=== PATIENT | male | born 2005 | race Caucasian/White ===

== ENCOUNTER 2025-02-09 21:09 | Emergency (ER) | payer BC ==
[2025-02-09 21:29] VITALS: TEMP 98.8
--- NOTE | 2025-02-09 22:00 | ED ---
General Adult HPI - General Chief complaint: GI Bleed Stated complaint: Abd Pain Time Seen by Provider: 02/09/25 21:37 Source: patient Mode of arrival: ambulatory - History of Present Illness Initial comments: Dictation was produced using [employer] dictation software. please excuse any grammatical, word or spelling errors. Chief Complaint: 19-year-old male presents with concerns of upper GI bleed History of Present Illness: Patient is 19-year-old male states he feels anxious because he thinks he is having upper GI bleed. States that he has some cramping to his lower abdomen. He is brushing his teeth after drinking cranberry juice when he vomited some red emesis. Patient denies any medical history. States that he is currently on antibiotics for sinus infection The ROS documented in this emergency department record has been reviewed and confirmed by me. Those systems with pertinent positive or negative responses have been documented in the HPI. All other systems are other negative and/or noncontributory. - Related Data Allergies Allergy/AdvReac Type Severity Reaction Status Date / Time No Known Allergies Allergy Verified 02/09/25 21:29 Review of Systems ROS Statement: Those systems with pertinent positive or pertinent negative responses have been documented in the HPI. ROS Other: All systems not noted in ROS Statement are negative. Past Medical History Past Medical History: No Reported History History of Any Multi-Drug Resistant Organisms: None Reported Past Surgical History: No Surgical Hx Reported Past Psychological History: No Psychological Hx Reported Smoking Status: Vaper Past Alcohol Use History: None Reported, Rare Past Drug Use History: None Reported General Exam - General Exam Comments Initial Comments: PHYSICAL EXAM: General Impression: Alert and oriented x3, not in acute distress HEENT: Normocephalic atraumatic, extra-ocular movements intact, pupils equal and reactive to light bilaterally, mucous membranes moist. Cardiovascular: Heart regular rate and rhythm Chest: Able to complete full sentences, no retractions, no tachypnea Abdomen: abdomen soft, non-tender, non-distended, no organomegaly Musculoskeletal: Pulses present and equal in all extremities, no peripheral edema Motor: no focal deficits noted Neurological: CN II-XII grossly intact, no focal motor or sensory deficits noted Skin: Intact with no visualized rashes Psych: Normal affect and mood Course Vital Signs 02/09/25 02/09/25 21:22 23:12 Temperature 98.8 F Pulse Rate 79 67 Respiratory 18 17 Rate Blood Pressure 153/80 131/75 O2 Sat by Pulse 97 99 Oximetry Medical Decision Making - Medical Decision Making Was pt. sent in by a medical professional or institution (, PA, AIR CONDITIONING EQUIPMENT MECHANIC, urgent care, hospital, or penitentiary...) When possible be specific @ -[No] Did you speak to anyone other than the patient for history (EMS, parent, family, police, friend...)? What history was obtained from this source @ -[No] Did you review nursing and triage notes (agree or disagree)? Why? @ -[I reviewed and agree with nursing and triage notes] Were old charts reviewed (outside hosp., previous admission, EMS record, old EKG, old radiological studies, urgent care reports/EKG's, penitentiary records)? Report findings @ -[No old charts were reviewed] Differential Diagnosis (chest pain, altered mental status, abdominal pain women, abdominal pain men, vaginal bleeding, musculoskeletal, weakness, fever, dyspnea, syncope, headache, dizziness, GI bleed, back pain, seizure, CVA, palpatations, mental health)? @ -Differential GI Bleed: Esophageal varices, aortoenteric fistula, Vidhi-Cedeno, gastritis, peptic ulcer disease, diverticulosis, inflammatory bowel disease, hemorrhoids, fissure, colitis, malignancy, Meckel's diverticulum, this is not meant to be an all- inclusive list. EKG interpreted by me (3pts min.). @ -[None done] X-rays interpreted by me (1pt min.). @ -[None done] CT interpreted by me (1pt min.). @ -[None done] U/S interpreted by me (1pt. min.). @ -[None done] What testing was considered but not performed or refused? (CT, X-rays, U/S, labs)? Why? @ -[None] What meds were considered but not given or refused? Why? @ -[None] Was smoking cessation discussed for >3mins.? @ -[No] Were there social determinants of health that impacted care today? How? (Homelessness, low income, unemployed, alcoholism, drug addiction, tra nsportation, low edu. Level, literacy, decrease access to med. care, custodial, rehab)? @ -[No] Was there de-escalation of care discussed even if they declined (Discuss DNR or withdrawal of care, Hospice)? DNR status @ -[No] What co-morbidities impacted this encounter? (DM, HTN, Smoking, COPD, CAD, Can cer, CVA, ARF, Chemo, Hep., AIDS, mental health diagnosis, sleep apnea, morbid obesity)? @ -[None] Was patient admitted / discharged? Hospital course, mention meds given and route, prescriptions, significant lab abnormalities, going to OR and other pertinent info. @ -19-year-old male with symptoms concerning for upper GI bleed. Vital signs stable. Labs unremarkable. Patient has no high risk features. Patient discharged given referral to GI doctor. Return precautions discussed. Did you discuss the management of the patient with other professionals (professionals i.e. , PA, AIR CONDITIONING EQUIPMENT MECHANIC, lab, RT, psych nurse, social media content specialist, database coordinator, teacher, financial administration officer, behavioral health case manager)? Give summary @ -[No] Was critical care preformed (if so, how long)? @ -[No] Undiagnosed new problem with uncertain prognosis? @ -[No] Drug Therapy requiring intensive monitoring for toxicity (Heparin, Nitro, Insulin, Cardizem)? @ -[No] Were any procedures done? @ -[No] Diagnosis/symptom? Acute, or Chronic, or Acute on Chronic? Uncomplicated (without systemic symptoms) or Complicated (systemic symptoms)? @ -Emesis Side effects of treatment? @ -[No] Exacerbation, Progression, or Severe Exacerbation? @ -[No] Poses a threat to life or bodily function? How? (Chest pain, [place], [place], pneumonia, PE, COPD, DKA, ARF, appy, cholecystitis, CVA, Diverticulitis, Homicidal, Suicidal, threat to staff... and all critical care pts) @ -[No] - Lab Data Result diagrams: 02/09/25 22:14 02/09/25 22:14 Lab Results 02/09/25 02/09/25 02/09/25 Range/Units 22:14 22:14 22:14 WBC 5.53 (4.50-10.00) 10*3/uL RBC 4.63 (4.40-5.60) 10*6/uL Hgb 13.3 (13.0-17.0) g/dL Hct 39.5 L (39.6-50.0) % MCV 85.3 (80.0-97.0) fL MCH 28.7 (27.0-32.0) pg MCHC 33.7 (32.0-37.0) g/dL Plt Count 305 (140-440) 10*3/uL MPV 9.3 L (9.5-12.2) fL Immature Gran % (Auto) 0.2 % Neutrophils % 53.4 % Lymphocytes % 36.0 % Monocytes % 9.4 % Eosinophils % 0.5 % Basophils % 0.5 % Immature Gran # 0.01 (0.00-0.04) 10*3/uL Neutrophils # 2.95 (1.80-7.70) 10*3/uL Lymphocytes # 1.99 (0.90-5.00) 10*3/uL Monocytes # 0.52 (0.20-1.00) 10*3/uL Eosinophils # 0.03 L (0.04-0.35) 10*3/uL Basophils # 0.03 (0.00-0.10) 10*3/uL PT 10.9 (10.0-12.5) sec INR 1.0 (<1.2) APTT 23.8 (22.0-30.0) sec Sodium 142 (137-145) mmol/L Potassium 4.0 (3.5-5.1) mmol/L Chloride 108 H (98-107) mmol/L Carbon Dioxide 21 L (22-30) mmol/L Anion Gap 13 mmol/L BUN 16 (9-20) mg/dL Creatinine 0.64 L (0.66-1.25) mg/dL Est GFR (CKD-EPI)AfAm >90 (>60 ml/min/1.73 sqM) Est GFR (CKD-EPI)NonAf >90 (>60 ml/min/1.73 sqM) Glucose 94 (74-99) mg/dL Calcium 9.4 (8.4-10.2) mg/dL Disposition Clinical Impression: GI bleed Disposition: HOME SELF-CARE Condition: Fair Instructions (If sedation given, give patient instructions): Gastrointestinal Bleeding (ED) Is patient prescribed a controlled substance at d/c from ED?: No Referrals: Bety Oliveros MD [STAFF PHYSICIAN] - 1-2 days Time of Disposition: 23:58
[2025-02-09 22:20] LABS: Basophils # (A) 0.03 10*3/uL (0.00-0.10); Basophils % (A) 0.5 %; Eosinophils # (A) 0.03 10*3/uL (0.04-0.35); Eosinophils % (A) 0.5 %; HCT 39.5 % (39.6-50.0); HGB 13.3 g/dL (13.0-17.0); Lymphocytes # (A) 1.99 10*3/uL (0.90-5.00); Lymphocytes % (A) 36.0 %; MCH 28.7 pg (27.0-32.0); MCHC 33.7 g/dL (32.0-37.0); MCV 85.3 fL (80.0-97.0); Monocytes # (A) 0.52 10*3/uL (0.20-1.00); Monocytes % (A) 9.4 %; Neutrophils # (A) 2.95 10*3/uL (1.80-7.70); Neutrophils % (A) 53.4 %; Platelet Count 305 10*3/uL (140-440); RBC 4.63 10*6/uL (4.40-5.60); RDW 14.0 % (11.5-14.5); WBC 5.53 10*3/uL (4.50-10.00)
[2025-02-09 22:30] LABS: INR 1.0 (<1.2); Partial Thromboplastin Time 23.8 sec (22.0-30.0); Prothrombin Time 10.9 sec (10.0-12.5)
[2025-02-09 22:38] LABS: African American GFR (CKD) >90 (>60 ml/min/1.73 sqM); Anion Gap 13 mmol/L; Blood Urea Nitrogen 16 mg/dL (9-20); Calcium 9.4 mg/dL (8.4-10.2); Carbon Dioxide 21 mmol/L (22-30); Chloride 108 mmol/L (98-107); Glucose 94 mg/dL (74-99); Non-African American GFR(CKD) >90 (>60 ml/min/1.73 sqM); Potassium 4.0 mmol/L (3.5-5.1); Sodium 142 mmol/L (137-145)
--- NOTE | 2025-02-09 22:38 | XR ---
EXAMINATION TYPE: XR abdomen 1V DATE OF EXAM: 02/09/2025 10:24 PM CLINICAL INDICATION: Male, 19 years old with history of lower abdominal cramping, pain TECHNIQUE: 2 upright views of the abdomen. COMPARISON: None. FINDINGS: Scattered gas is seen in non-distended small and large bowel loops. There is no visceromega ly, pneumoperitoneum, or abnormal calcification appreciated. The lung bases are clear and the osseous structures are intact. IMPRESSION: Overall nonobstructive bowel gas pattern. [facility], , 02/09/2025 10:35 PM
[2025-02-10 00:12] VITALS: BP 143/69; PULSE 65; RESP 16
== END 2025-02-10 00:11 | disposition home or self-care (01) ==
LOC: EC 21:09
DX: K92.2 Gastrointestinal hemorrhage, unspecified (principal); F17.290 Nicotine dependence, other tobacco product, uncomplicated
CPT/HCPCS: 36415; 74018; 80048; 85025; 85610; 85730; 99285